=== PATIENT | female | born 1995 | race African-American/Black ===

== ENCOUNTER 2019-09-12 12:53 | Inpatient (IN) ==
[2019-09-12] MEDS ORDERED: ACETAMINOPHEN 325 MG TABLET PO PRN (13:47)
[2019-09-12] MEDS ORDERED: ALBUTEROL/IPRATROPIUM 3 ML NEB RESP TX PRN (13:47)
[2019-09-12 13:52] LABS: Basophils # 0.1 10*3/uL (0.0-0.2); Eosinophils # 0.8 10*3/uL (0.0-0.87); Eosinophils % 10.2 % (0.00-10.9); Hematocrit 39.1 VOL% (35.7-47.0); Hemoglobin 11.7 GM/DL (12.0-16.0); Immature Granulocytes % 0.2 %; Immature Granulocytes Absolute 0.02 #; Lymphocytes # 2.5 10*3/uL (1.4-4.0); Lymphocytes % 30.5 % (21.3-54.2); Mean Corpuscular HGB Conc 29.9 GM/DL (32-36); Mean Corpuscular Volume 80.6 FL (87-102); Mean Platelet Volume 10.3 FL (9.6-12.0); Monocytes % 7.2 % (1.7-12.7); Neutrophils % 50.9 % (38.7-73.9); Platelet Count 212 T/CUMM (130-400); Red Blood Count 4.85 MC/CUMM (3.8-5.5); Red Cell Distribution Width 16.8 % (9.3-17.3); White Blood Count 8.2 T/CUMM (4-12)
[2019-09-12] MEDS ORDERED: MORPHINE 4 MG/1 ML VIAL ONE (14:00)
[2019-09-12] MEDS ORDERED: MORPHINE 4 MG/1 ML VIAL IV STA (14:00)
[2019-09-12 14:04] LABS: PT Patient Result 10.8 SECS (9.8-11.9); Partial Thromboplastin Time 28.3 SECS (23.9-33.8)
[2019-09-12] MEDS ORDERED: LIDOCAINE 1%/EPI INJ 20 ML VIAL ONE (14:07)
[2019-09-12 14:12] LABS: Albumin 4.3 G/DL (3.4-5.0); Calcium 10.3 MG/DL (8.5-10.1); Osmolality,Calculated 265.2 MOS/KG (273-304)
[2019-09-12] MEDS: ONDANSETRON 4 MG/2 ML VIAL IV PRN (14:51)
[2019-09-12] MEDS: HYDROmorphone 2 MG/1 ML VIAL IV PRN ×2 (14:52→20:58)
[2019-09-12] MEDS: KETOROLAC 10 MG TABLET PO PRN (17:55)
[2019-09-12] MEDS: traZODone 50 MG TABLET PO PRN (23:15)
[2019-09-13] MEDS: KETOROLAC 10 MG TABLET PO PRN (04:11)
[2019-09-13] MEDS: PANTOPRAZOLE 40 MG TABLET PO SCH (09:08)
[2019-09-13] MEDS: HYDROmorphone 2 MG/1 ML VIAL IV PRN ×2 (09:38→19:12)
[2019-09-13] MEDS: ONDANSETRON 4 MG/2 ML VIAL IV PRN ×2 (10:15→16:53)
[2019-09-13] MEDS: PROMETHAZINE 25 MG TABLET PO PRN (19:47)
[2019-09-13] MEDS: BISACODYL 5 MG TABLET PO PRN (21:40)
[2019-09-14] MEDS: PROMETHAZINE 25 MG TABLET PO PRN ×2 (09:05→19:46)
[2019-09-14] MEDS: PANTOPRAZOLE 40 MG TABLET PO SCH (09:07)
[2019-09-14] MEDS: NICOTINE 21 MG/24 HR PATCH TRANSDERM SCH (14:15)
[2019-09-14] MEDS: ONDANSETRON 4 MG/2 ML VIAL IV PRN (15:20)
[2019-09-14] MEDS: HYDROmorphone 2 MG/1 ML VIAL IV PRN ×2 (15:20→19:46)
[2019-09-14] MEDS: LORazepam 1 MG TABLET PO PRN (18:02)
[2019-09-14] MEDS: traZODone 50 MG TABLET PO PRN (21:04)
[2019-09-15] MEDS: HYDROmorphone 2 MG/1 ML VIAL IV PRN ×7 (01:29→20:25)
[2019-09-15] MEDS: ONDANSETRON 4 MG/2 ML VIAL IV PRN ×2 (01:29→07:47)
[2019-09-15] MEDS ORDERED: TALC INTRAPLEURAL POWDER 3 GM VIAL INTRAPLEUR ONE (08:28)
[2019-09-15] MEDS: LACTATED RINGERS 1,000 ML IV SCH ×2 (09:15→21:49)
[2019-09-15] MEDS ORDERED: ceFAZolin 1,000 MG in SYRINGE 1 EACH IV ONE (10:13)
[2019-09-15] MEDS ORDERED: fentaNYL 100 MCG/2 ML VIAL ONE (11:14)
[2019-09-15] MEDS ORDERED: SEVOFLURANE 1 UNIT/15 MINUTE INH ONE (11:14)
[2019-09-15] MEDS ORDERED: LIDOCAINE 2% 5 ML VIAL ONE (11:14)
[2019-09-15] MEDS ORDERED: LACTATED RINGERS 1,000 ML IV ONE (11:14)
[2019-09-15] MEDS ORDERED: ROCURONIUM 100 MG/10 ML VIAL IV ONE (11:14)
[2019-09-15] MEDS ORDERED: propofoL 200 MG/20 ML VIAL IV ONE (11:14)
[2019-09-15] MEDS ORDERED: ONDANSETRON 4 MG/2 ML VIAL ONE ×2 (11:15→11:19)
[2019-09-15] MEDS ORDERED: KETOROLAC 30 MG/1 ML VIAL ONE (11:15)
[2019-09-15] MEDS ORDERED: MEPERIDINE 25 MG/1 ML VIAL IV PRN (11:17)
[2019-09-15] MEDS ORDERED: ONDANSETRON 4 MG/2 ML VIAL IV PRN (11:17)
[2019-09-15] MEDS ORDERED: MEPERIDINE 25 MG/1 ML VIAL ONE (11:19)
[2019-09-15] MEDS ORDERED: HYDROmorphone 2 MG/1 ML VIAL ONE (11:53)
[2019-09-15] MEDS: PROMETHAZINE 25 MG TABLET PO PRN ×2 (13:52→20:24)
[2019-09-15] MEDS ORDERED: SODIUM CHLORIDE 0.9% 1,000 ML IV ONE (14:15)
[2019-09-15 14:45] LABS: Hematocrit 27.7 VOL% (35.7-47.0); Hemoglobin 8.3 GM/DL (12.0-16.0)
[2019-09-15] MEDS: PANTOPRAZOLE 40 MG TABLET PO SCH (15:49)
[2019-09-15] MEDS: NICOTINE 21 MG/24 HR PATCH TRANSDERM SCH (15:49)
[2019-09-15] MEDS: KETOROLAC 10 MG TABLET PO SCH ×2 (20:24→21:48)
[2019-09-16] MEDS: HYDROmorphone 2 MG/1 ML VIAL IV PRN ×3 (01:21→18:46)
[2019-09-16] MEDS: KETOROLAC 10 MG TABLET PO SCH ×4 (01:22→21:21)
[2019-09-16 05:34] LABS: Basophils # 0.1 10*3/uL (0.0-0.2); Basophils % 0.5 % (0.0-0.8); Eosinophils # 0.5 10*3/uL (0.0-0.87); Eosinophils % 4.4 % (0.00-10.9); Hematocrit 20.1 VOL% (35.7-47.0); Immature Granulocytes % 0.4 %; Immature Granulocytes Absolute 0.05 #; Lymphocytes # 1.7 10*3/uL (1.4-4.0); Lymphocytes % 14.8 % (21.3-54.2); Mean Corpuscular HGB Conc 30.8 GM/DL (32-36); Mean Corpuscular Volume 80.7 FL (87-102); Mean Platelet Volume 10.6 FL (9.6-12.0); Monocytes % 6.7 % (1.7-12.7); Neutrophils % 73.2 % (38.7-73.9); Platelet Count 204 T/CUMM (130-400); Red Blood Count 2.49 MC/CUMM (3.8-5.5); Red Cell Distribution Width 15.9 % (9.3-17.3); White Blood Count 11.7 T/CUMM (4-12)
[2019-09-16 05:38] LABS: Hemoglobin 6.2 GM/DL (12.0-16.0)
[2019-09-16 07:25] LABS: Basophils # 0.1 10*3/uL (0.0-0.2); Basophils % 0.5 % (0.0-0.8); Eosinophils # 0.4 10*3/uL (0.0-0.87); Eosinophils % 4.2 % (0.00-10.9); Hematocrit 18.7 VOL% (35.7-47.0); Immature Granulocytes % 0.5 %; Immature Granulocytes Absolute 0.05 #; Lymphocytes # 1.4 10*3/uL (1.4-4.0); Lymphocytes % 13.5 % (21.3-54.2); Mean Corpuscular HGB Conc 30.5 GM/DL (32-36); Mean Corpuscular Volume 80.6 FL (87-102); Mean Platelet Volume 10.4 FL (9.6-12.0); Monocytes % 7.9 % (1.7-12.7); Neutrophils % 73.4 % (38.7-73.9); Platelet Count 202 T/CUMM (130-400); Red Blood Count 2.32 MC/CUMM (3.8-5.5); White Blood Count 10.6 T/CUMM (4-12)
[2019-09-16 07:27] LABS: Hemoglobin 5.7 GM/DL (12.0-16.0)
[2019-09-16] MEDS: PANTOPRAZOLE 40 MG TABLET PO SCH (09:05)
[2019-09-16] MEDS: NICOTINE 21 MG/24 HR PATCH TRANSDERM SCH (09:05)
[2019-09-16] MEDS: ONDANSETRON 4 MG/2 ML VIAL IV PRN (09:27)
[2019-09-16] MEDS ORDERED: SODIUM CHLORIDE 0.9% 1,000 ML IV PRN (10:10)
[2019-09-16] MEDS: ALBUTEROL/IPRATROPIUM 3 ML NEB RESP TX SCH ×3 (11:50→20:50)
[2019-09-16] MEDS: LORazepam 1 MG TABLET PO PRN (15:14)
[2019-09-16] MEDS: BISACODYL 5 MG TABLET PO PRN (15:15)
[2019-09-16 17:19] LABS: Hematocrit 21.3 VOL% (35.7-47.0); Hemoglobin 6.5 GM/DL (12.0-16.0)
[2019-09-16] MEDS: traZODone 50 MG TABLET PO PRN (21:20)
[2019-09-16] MEDS: MULTIVITAMIN (INTRINSIC) CAPSULE PO SCH (21:20)
[2019-09-17] MEDS ORDERED: PHENOL 1.4% THROAT SPRAY 177 ML BOTTLE PO PRN (00:05)
[2019-09-17] MEDS: ALBUTEROL/IPRATROPIUM 3 ML NEB RESP TX SCH ×7 (00:26→23:23)
[2019-09-17] MEDS: KETOROLAC 10 MG TABLET PO SCH ×4 (02:28→20:25)
[2019-09-17 06:17] LABS: Basophils % 0.5 % (0.0-0.8); Eosinophils # 0.4 10*3/uL (0.0-0.87); Eosinophils % 5.1 % (0.00-10.9); Hematocrit 18.3 VOL% (35.7-47.0); Immature Granulocytes % 0.5 %; Immature Granulocytes Absolute 0.04 #; Lymphocytes # 1.1 10*3/uL (1.4-4.0); Lymphocytes % 13.4 % (21.3-54.2); Mean Corpuscular HGB Conc 31.7 GM/DL (32-36); Mean Corpuscular Volume 83.2 FL (87-102); Mean Platelet Volume 11.1 FL (9.6-12.0); Monocytes % 8.3 % (1.7-12.7); Neutrophils % 72.2 % (38.7-73.9); Platelet Count 171 T/CUMM (130-400); Red Cell Distribution Width 16.4 % (9.3-17.3); White Blood Count 8.2 T/CUMM (4-12)
[2019-09-17 06:22] LABS: Hemoglobin 5.8 GM/DL (12.0-16.0)
[2019-09-17 06:35] LABS: Calcium 9.1 MG/DL (8.5-10.1)
[2019-09-17] MEDS: NICOTINE 21 MG/24 HR PATCH TRANSDERM SCH (08:55)
[2019-09-17] MEDS: MULTIVITAMIN (INTRINSIC) CAPSULE PO SCH ×2 (08:55→20:25)
[2019-09-17] MEDS: PANTOPRAZOLE 40 MG TABLET PO SCH (08:55)
[2019-09-17] MEDS: ONDANSETRON 4 MG/2 ML VIAL IV PRN ×3 (08:55→21:59)
[2019-09-17] MEDS ORDERED: SODIUM CHLORIDE 0.9% 1,000 ML IV PRN (08:55)
[2019-09-17] MEDS: HYDROmorphone 2 MG/1 ML VIAL IV PRN ×2 (09:37→16:11)
[2019-09-17] MEDS: LORazepam 1 MG TABLET PO PRN (13:25)
[2019-09-17] MEDS: traZODone 50 MG TABLET PO PRN (22:05)
[2019-09-18 02:05] LABS: Hematocrit 24.3 VOL% (35.7-47.0); Hemoglobin 7.7 GM/DL (12.0-16.0)
[2019-09-18] MEDS: KETOROLAC 10 MG TABLET PO SCH ×4 (02:59→21:02)
[2019-09-18] MEDS: ALBUTEROL/IPRATROPIUM 3 ML NEB RESP TX SCH ×6 (03:17→23:00)
[2019-09-18 06:07] LABS: Basophils # 0.1 10*3/uL (0.0-0.2); Basophils % 0.5 % (0.0-0.8); Eosinophils # 0.6 10*3/uL (0.0-0.87); Eosinophils % 6.7 % (0.00-10.9); Hematocrit 24.5 VOL% (35.7-47.0); Hemoglobin 7.8 GM/DL (12.0-16.0); Immature Granulocytes % 0.5 %; Immature Granulocytes Absolute 0.05 #; Lymphocytes # 1.4 10*3/uL (1.4-4.0); Lymphocytes % 14.6 % (21.3-54.2); Mean Corpuscular HGB Conc 31.8 GM/DL (32-36); Mean Corpuscular Volume 82.8 FL (87-102); Mean Platelet Volume 10.4 FL (9.6-12.0); Monocytes % 9.6 % (1.7-12.7); Neutrophils % 68.1 % (38.7-73.9); Platelet Count 187 T/CUMM (130-400); Red Blood Count 2.96 MC/CUMM (3.8-5.5); White Blood Count 9.3 T/CUMM (4-12)
[2019-09-18] MEDS: BISACODYL 5 MG TABLET PO PRN (09:28)
[2019-09-18] MEDS: PANTOPRAZOLE 40 MG TABLET PO SCH (09:28)
[2019-09-18] MEDS: MULTIVITAMIN (INTRINSIC) CAPSULE PO SCH ×2 (09:28→21:03)
[2019-09-18] MEDS: NICOTINE 21 MG/24 HR PATCH TRANSDERM SCH (09:29)
[2019-09-18] MEDS: ONDANSETRON 4 MG/2 ML VIAL IV PRN ×2 (09:29→21:10)
[2019-09-18] MEDS: HYDROmorphone 2 MG/1 ML VIAL IV PRN ×2 (09:30→21:03)
[2019-09-18] MEDS ORDERED: BISACODYL 5 MG TABLET PO ONE (11:17)
[2019-09-18] MEDS: PROMETHAZINE 25 MG TABLET PO PRN (22:24)
[2019-09-19] MEDS: KETOROLAC 10 MG TABLET PO SCH ×3 (01:36→15:37)
[2019-09-19] MEDS: ALBUTEROL/IPRATROPIUM 3 ML NEB RESP TX SCH ×2 (03:09→07:50)
[2019-09-19] MEDS: HYDROmorphone 2 MG/1 ML VIAL IV PRN (03:51)
[2019-09-19] MEDS: ONDANSETRON 4 MG/2 ML VIAL IV PRN (03:54)
[2019-09-19] MEDS ORDERED: CALCIUM CARBONATE CHEW 500 MG TABLET PO ONE (06:34)
[2019-09-19] MEDS ORDERED: MEPERIDINE 50 MG/1 ML VIAL IM ONE (08:00)
[2019-09-19] MEDS ORDERED: PROMETHAZINE 25 MG/1 ML VIAL IM ONE (08:00)
[2019-09-19] MEDS ORDERED: MIDAZOLAM 2 MG/2 ML VIAL ONE (08:19)
[2019-09-19] MEDS ORDERED: LIDOCAINE 1% 20 ML VIAL MISC INJ ONE (08:30)
[2019-09-19] MEDS ORDERED: LIDOCAINE 2% 20 ML VIAL RESP TX ONE (08:30)
[2019-09-19] MEDS ORDERED: MIDAZOLAM 2 MG/2 ML VIAL IV ONE (08:30)
[2019-09-19] MEDS ORDERED: LIDOCAINE 2% VISCOUS 100 ML BOTTLE SWISH/SPIT ONE (08:30)
[2019-09-19] MEDS: PANTOPRAZOLE 40 MG TABLET PO SCH (10:43)
[2019-09-19] MEDS: MULTIVITAMIN (INTRINSIC) CAPSULE PO SCH (10:43)
[2019-09-19] MEDS: NICOTINE 21 MG/24 HR PATCH TRANSDERM SCH (10:44)
[2019-09-19 16:41] VITALS: BP 112/61
== END 2019-09-19 17:00 | disposition home or self-care (01) | DRG 167 ==
LOC: EDUNIT# → EDBD → N.ED 12:53 → N.EDINP 13:47 → N.3E 14:21
PROVIDERS: ADMIT Surgery; ATTEND Surgery